=== PATIENT | male | born 1950 | race Caucasian/White ===

== ENCOUNTER 2020-04-13 17:28 | Emergency (ER) | payer MEDICARE, SELFPAY ==
--- NOTE | 2020-04-13 18:08 | EDM.PDOC ---
ED HPI GENERAL MEDICAL PROBLEM - General Chief Complaint: Laceration Stated Complaint: CUT LEFT THUMB ABOUT 2 HRS AGO Time Seen by Provider: 04/13/20 17:50 Source of Information: Reports: Patient - History of Present Illness INITIAL COMMENTS - FREE TEXT/NARRATIVE: Dimitrios is a 69 year old right handed male present due to left thumb injury. Injury occurred this afternoon when cleaning out the attic using a straight edge blade resulting in a left thumb laceration. Dimitrios cleaned out wound with hydrogen peroxide and wrapped the thumb but had a rebleed. Dimitrios again cleaned wound out with hydrogen peroxide but was unable to get bleeding under control. Dimitrios has documentation of last tetanus shot which was 2010 and feel getting update today would be appropriate. Dimitrios denies any other injuries or acute concerns. - Related Data Allergies Allergy/AdvReac Type Severity Reaction Status Date / Time No Known Allergies Allergy Verified 04/13/20 17:51 Home Meds: Home Meds Aspirin 1 tab PO DAILY 04/13/20 [History] Metoprolol Tartrate [Lopressor] 1 tab PO DAILY 04/13/20 [History] atorvaSTATin [Lipitor] 1 tab PO DAILY 04/13/20 [History] lisinopriL [Prinivil] 1 tab PO DAILY 04/13/20 [History] Past Medical History - Past Surgical History Cardiovascular Surgical History: Reports: Coronary Artery Stent Social & Family History - Tobacco Use Smoking Status *Q: Never Smoker ED ROS GENERAL - Review of Systems Review Of Systems: Comprehensive ROS is negative, except as noted in HPI. ED EXAM, SKIN/RASH Exam: See Below Exam Limited By: No Limitations General Appearance: Alert, WD/WN, No Apparent Distress Eye Exam: Bilateral Eye: EOMI, Normal Inspection Ears: Hearing Grossly Normal Nose: Normal Inspection Throat/Mouth: Normal Voice, No Airway Compromise Head: Normocephalic Neck: Normal Inspection, Supple, Non-Tender, Full Range of Motion Respiratory/Chest: No Respiratory Distress, Lungs Clear, Normal Breath Sounds Cardiovascular: Normal Peripheral Pulses, Regular Rate, Rhythm, No Edema Extremities: Other (extensor tendon left thumb laceration with moderate bleeding noted) Neurological: Alert, Oriented, Normal Cognition, No Motor/Sensory Deficits Psychiatric: Normal Affect, Normal Mood Skin: Warm ED SKIN PROCEDURES - Laceration/Wound Repair Left Digit - 1st (Thumb) Appearance: Linear Distal NVT: Neuro & Vascular Intact Anesthetic Type: Local Local Anesthesia - Lidocaine (Xylocaine): 1% with EPI Local Anesthetic Volume: 4cc Skin Prep: Saline Saline Irrigation (cc's): 250 Exploration/Debridement/Repair: Wound Explored, In a Bloodless Field Closed with: Sutures Lac/Wound length In cm: 2.7 Suture Size: 5-0 # of Sutures: 5 Suture Type: Nylon Suture Size: Other (30-50% extensor tendon injury noted) Sterile Dressing Applied: Nurse (coban to keep thumb in extension) Tetanus Status Addressed: Yes (updated) Course - Vital Signs Last Recorded V/S: Last Vital Signs Temp 36.7 C 04/13/20 17:58 Pulse 67 04/13/20 17:58 Resp 16 04/13/20 17:58 BP 144/81 H 04/13/20 17:58 Pulse Ox 98 04/13/20 17:58 - Orders/Labs/Meds Orders: Active Orders 24 hr Category Date Time Status Vaccines to be Administered [RC] PER UNIT ROUTINE Care 04/13/20 18:10 Active Meds: Medications Discontinued Medications Generic Name Dose Route Start Last Admin Trade Name Angela PRN Reason Stop Dose Admin Bacitracin 1 dose 04/13/20 18:10 04/13/20 18:34 Bacitracin Oint 1 Gm TOP 04/13/20 18:11 1 dose ONETIME ONE Administration Diphtheria/Tetanus/Acell Pertussis 0.5 ml 04/13/20 18:09 04/13/20 18:33 Adacel IM 04/13/20 18:10 0.5 ml .ONCE ONE Administration Lidocaine/Epinephrine 5 ml 04/13/20 18:10 Xylocaine 1% With Epinephrine 1:100,000 INJECT 04/13/20 18:11 ONETIME ONE Departure - Departure Time of Disposition: 19:10 Disposition: Home, Self-Care 01 Clinical Impression: Laceration of thumb with tendon involvement, Tetanus toxoid vaccination administered at current visit, Tendon laceration - Discharge Information Instructions: Sutured Wound Care Referrals: PCP,None [Primary Care Provider] - Humberto Beauchamp MD [Physician] - Forms: ED Department Discharge Additional Instructions: 1. Call [facility] on [address] am for evaluation of Left Thumb extensor tendon injury. 2. Tetanus updated during ER visit. 3. Tylenol 500-1000mg every 6-8 hours for mild pain. 4. Ibuprofen 600-800mg every 6-8 hours for moderate pain and swelling. 5. Wear coban extended (extensor tendon)at all time until evaluated by Orthopedic to decide if surgical exploration need for extensor tendon injury after examination. 6. Return to ER if concerns change new, worsening symptoms or concerns. Sepsis Event Note (ED) - Evaluation Sepsis Screening Result: No Definite Risk - Focused Exam Vital Signs: Vital Signs Temp Pulse Resp BP Pulse Ox 04/13/20 17:58 36.7 C 67 16 144/81 H 98 04/13/20 17:46 36.7 C 67 16 144/81 H 98 - My Orders Last 24 Hours: My Active Orders 04/13/20 18:10 Vaccines to be Administered [RC] PER UNIT ROUTINE - Assessment/Plan Last 24 Hours: My Active Orders 04/13/20 18:10 Vaccines to be Administered [RC] PER UNIT ROUTINE
[2020-04-13] MEDS ORDERED: Diphtheria,Pertussis(Acell),Tetanus Vaccine 0.5 ML SDV IM ONE (18:09)
[2020-04-13] MEDS ORDERED: Lidocaine 1% with EPINEPHrine 1:100,000 50 ML MDV INJECT ONE (18:10)
[2020-04-13] MEDS ORDERED: Bacitracin Oint 1 GM U/D Packet TOP ONE (18:10)
== END 2020-04-13 19:25 | disposition home or self-care (01) ==
LOC: JP.ED 17:28
DX: S66.222A Laceration of extensor muscle, fascia and tendon of left thumb at wrist and hand level, initial encounter (principal); Z23 Encounter for immunization; Z79.82 Long term (current) use of aspirin; Z95.5 Presence of coronary angioplasty implant and graft; W26.9XXA Contact with unspecified sharp object(s), initial encounter
CPT/HCPCS: 12002; 26410; 90471; 90715; 99282; 99283

== ENCOUNTER → 2023-12-02 | Day surgery (SDC) | payer MEDICARE, OTHER, SELFPAY ==
[~2023-12-02] MED LIST: Ondansetron 4 MG/2 ML SDV ONE; Propofol 200 MG/20 ML SDV ONE; fentaNYL 100 MCG/2 ML SDV ONE
[2023-12-02] MEDS: Sodium Chloride 0.9% 1,000 ML IV SCH (07:23)
== END ==
LOC: JP.SDS 06:27
PROVIDERS: ATTEND Surgery
DX: Z12.11 Encounter for screening for malignant neoplasm of colon (principal); D12.2 Benign neoplasm of ascending colon; D12.3 Benign neoplasm of transverse colon; I25.10 Atherosclerotic heart disease of native coronary artery without angina pectoris
CPT/HCPCS: 45380; 88305; J2405; J2704; J3010; J7030; 00811-QZ